=== PATIENT | female | born 1950 | race African-American/Black ===

== ENCOUNTER 2018-03-05 06:06 | Day surgery (SDC) | payer MEDICARE, OTHER ==
[~2018-03-05] VITALS: Ht 167.6 cm; Wt 106.1 kg
--- NOTE | ~2018-03-05 | HP ---
PATIENT: BRITTANI FLORES MEDICAL RECORD: [id number] ACCOUNT: [id number] LOCATION:[facility] : 54 ADMISSION DATE: 03/05/18 PCP: OMAR ROMERO MD HISTORY AND PHYSICAL EXAMINATION HISTORY: Ms. Flores is a 67-year-old female who is having significant problems with chronic tonsillitis and uvular lesion. She is being admitted for tonsillectomy and uvulectomy. PAST MEDICAL HISTORY: Includes hypertension, reflux, gastric ulcer. CURRENT MEDICATIONS: Include metoprolol, ranitidine, spironolactone, amlodipine, Flexeril, Ativan, pantoprazole, Zyrtec. ALLERGIES: ASPIRIN. PHYSICAL EXAMINATION: GENERAL: She is healthy appearing, developmentally normal. FACE: Normal, symmetric, no lesions. EYES: Sclerae and conjunctivae are normal. EARS: Canals and TMs are normal. NOSE: No mass, polyps or drainage. ORAL CAVITY AND OROPHARYNX: Cryptic inflamed tonsils bilaterally. Lesion on the uvula consistent with a papilloma and possibly a papilloma on the left tonsil as well. NECK: No masses, no adenopathy. CHEST: Clear. CARDIOVASCULAR: Regular rate and rhythm without murmur. EXTREMITIES: Normal. IMPRESSION: Chronic tonsillitis with uvular lesion. PLAN: Tonsillectomy, possible excision of the uvula. TRANSINT:[id number] Voice Confirmation ID: [id number] DOCUMENT ID: [id number] JAZZY MICHAELS MD at 1731 CC: [id number] DICTATION DATE: 03/01/18 1417 [facility] TECHNICIAN: 03/01/18 1434 [facility] 03/05/[address] [id number]
--- NOTE | ~2018-03-05 | OP ---
PATIENT NAME: BRITTANI FLORES MEDICAL RECORD: [id number] :54 LOCATION:[facility] ADMISSION DATE: SURGEON: JAZZY ROBLES MD DATE OF OPERATION: 03/05/2018 PREOPERATIVE DIAGNOSES: Uvular lesion, tonsil lesion, and chronic tonsillitis. POSTOPERATIVE DIAGNOSES: Uvular lesion, tonsil lesion, and chronic tonsillitis. PROCEDURE: Tonsillectomy and uvulectomy. SURGEON: Jazzy Robles MD ANESTHESIA: General orotracheal. BLOOD LOSS: 5 cc. SPECIMENS: Right and left tonsil and uvula. COMPLICATIONS: None. DISPOSITION: Recovery stable. PROCEDURE NOTE: She was brought to the operating room and placed in supine position, sedated and intubated by anesthesia. The eyes were taped. Table was turned 90 degrees. Head drapes applied and she was positioned for tonsillectomy. Using a headlight, a Arik-Davian mouth gag was carefully inserted and elevated on a towel on her chest. The palate was examined and palpated. It was normal. The palate was retracted and nasopharynx was examined. There was no adenoid tissue. Mucosa was smooth. Choanae and eustachian orifices were normal bilaterally. No lesions. The right tonsil was grasped at the superior pole with a straight Allis clamp. Spatula tip cautery on a setting of 9 was used to dissect out the tonsil along its capsule, preserving the anterior and posterior tonsillar pillar. There were copious caseous material on the tonsil. The left tonsil was removed in the same fashion and had similar findings. Both sides of the nose were irrigated with saline. The pharynx was suctioned. Tonsillar fossae were agitated. Suction cautery on a setting of 20 was used to control minimal oozing. Then the uvula was addressed. It was excised near the base. There was a pedunculated lesion basically the same size of the uvula on the right side, but removing the majority of the uvula removed it with margins. Spatula tip cautery on a setting of 9 was used to remove it preserving all of the palate mucosa. The uvula incision was closed using interrupted 3-0 Vicryl as well as the superior portion of the tonsillar fossas, which was done under mattress sutures. With the field clean and dry, the Arik-Davian mouth gag was let down and removed. She was awakened, extubated, and transported to recovery in good condition. No complications. TRANSINT:[id number] Voice Confirmation ID: [id number] DOCUMENT ID: [id number] OPERATIVE REPORT [id number] BRITTANI FLORES ERIC MD at 1731 CC: [id number] DICTATION DATE: 03/05/18 1009 [facility]: 03/05/18 1048 [facility] 03/05/[address] [address]
[2018-03-05 06:24] LABS: HEMATOCRIT 43.4 % (36.0-48.0); HEMOGLOBIN 14.6 g/dL (12-16); MCH 31.7 pg (26.0-34.0); MCHC 33.6 g/dL (31.0-37.0); MCV 94.1 fL (80.0-100.0); MEAN PLATELET VOLUME 9.4 fL (7.4-10.4); RBC 4.61 10x6/uL (4.00-5.40); RDW 12.5 % (11.5-14.5)
[2018-03-05 06:42] LABS: CALCIUM 9.2 mg/dL (8.5-10.1); CARBON DIOXIDE 27.2 mmol/L (21.0-32.0); CREATININE - SERUM 1.2 mg/dL (0.6-1.3); POTASSIUM - SERUM 4.2 mmol/L (3.5-5.1)
[2018-03-05] MEDS ORDERED: NORVASC5 MG PO (07:28)
[2018-03-05] MEDS ORDERED: ALDACTONE25 MG PO (07:29)
[2018-03-05] MEDS ORDERED: GLYCOLAX527 GM PO (07:29)
[2018-03-05] MEDS ORDERED: METOPROLOL TART50 MG PO (07:29)
[2018-03-05] MEDS ORDERED: FOLATE0.4 MG PO (07:30)
[2018-03-05] MEDS ORDERED: ZANTAC300 MG PO (07:32)
[2018-03-05] MEDS ORDERED: CYCLOBENZAPRINE10 MG PO (07:34)
[2018-03-05] MEDS ORDERED: ATIVAN0.5 MG PO (07:35)
[2018-03-05] MEDS ORDERED: PROTONIX40 MG PO (07:35)
[2018-03-05 07:49] VITALS: BP 116/71; Ht 167.6 cm; Wt 106.1 kg
== END 2018-03-05 12:30 | disposition home or self-care (01) ==
LOC: D.OPS 06:06 → D.PAN 09:00 → D.OPS 09:15
PROVIDERS: Anesthesiology
DX: J35.01 Chronic tonsillitis (principal); K13.79 Other lesions of oral mucosa; K21.9 Gastro-esophageal reflux disease without esophagitis; I10 Essential (primary) hypertension; K25.9 Gastric ulcer, unspecified as acute or chronic, without hemorrhage or perforation; Z79.899 Other long term (current) drug therapy; Z88.6 Allergy status to analgesic agent